=== PATIENT | male | born 1995 | race Caucasian/White ===

== ENCOUNTER 2020-06-26 15:28 | Inpatient (IN) | payer OTHER ==
[2020-06-26 16:31] VITALS: BMI 29.4
[2020-06-26] MEDS ORDERED: MAGNESIUM HYDROX 2400MG/30ML ORAL SUSPENSION 30 ML CUP PO PRN (17:21)
[2020-06-26] MEDS ORDERED: IBUPROFEN 400 MG TABLET (FP) PO PRN ×2 (17:21→18:08)
[2020-06-26] MEDS ORDERED: MAG HYDROX/AL HYDROX/SIMETH 30 ML UNIT-DOSE CUP PO PRN (17:21)
[2020-06-26] MEDS ORDERED: ACETAMINOPHEN 325 MG TABLET (FP) PO PRN ×2 (17:21)
[2020-06-26] MEDS ORDERED: METHADONE HCL 10 MG TABLET (FOR DETOX USE ONLY) PO ONE (17:21)
[2020-06-26] MEDS ORDERED: MENTHOL/PHENOL 1 EACH UD MM PRN (17:21)
[2020-06-26] MEDS ORDERED: cloNIDine HCL 0.1 MG TABLET PO PRN (17:21)
[2020-06-26] MEDS ORDERED: MAGNESIUM CITRATE 300 ML BOTTLE PO PRN (17:21)
[2020-06-26] MEDS ORDERED: BISMUTH SUBSALICYLATE 524 MG/30 ML UD PO PRN (17:21)
[2020-06-26] MEDS ORDERED: NALOXONE (NARCAN) HCL 4 MG/0.1 ML SPRAY NS PRN (17:21)
[2020-06-26] MEDS: IBUPROFEN 600 MG TABLET (FP) PO PRN (19:02)
[2020-06-26] MEDS: NICOTINE POLACRILEX 2 MG GUM BUC PRN ×2 (19:46→22:53)
[2020-06-26] MEDS: diazePAM 5 MG TABLET PO PRN (20:25)
[2020-06-26] MEDS ORDERED: QUEtiapine FUMARATE 50 MG TABLET PO ONE (22:00)
[2020-06-26] MEDS: THIAMINE HCL 100 MG TABLET (FP) PO SCH (22:23)
[2020-06-26] MEDS: MELATONIN 5 MG TABLETS PO SCH (22:23)
[2020-06-27] MEDS: IBUPROFEN 600 MG TABLET (FP) PO PRN ×2 (04:36→17:58)
[2020-06-27] MEDS: diazePAM 5 MG TABLET PO PRN ×5 (04:37→22:28)
[2020-06-27] MEDS ORDERED: METHADONE HCL 5 MG TABLET (FOR DETOX USE ONLY) ONE (08:36)
[2020-06-27] MEDS ORDERED: METHADONE HCL 10 MG TABLET (FOR DETOX USE ONLY) ONE (08:37)
[2020-06-27] MEDS ORDERED: hydrOXYzine PAMOATE 50 MG CAPSULE (FP) PO PRN (08:46)
[2020-06-27] MEDS ORDERED: MASKS NR ONE (08:59)
[2020-06-27 09:26] LABS: HEMATOCRIT 33.7 % (35.4-49); HEMOGLOBIN 11.8 GM/dL (11.7-16.9); MCH 31.3 pg (25.7-33.7); MCHC 34.9 g/dl (32.0-35.9); MEAN CELL VOLUME 89.6 fl (80-96); MEAN PLT VOLUME 9.6 fl (7.5-11.1); PLATELET COUNT 248 K/MM3 (134-434); RBC 3.76 M/mm3 (4.00-5.60); RDW 14.2 % (11.9-15.9); WHITE BLOOD COUNT 7.4 K/mm3 (4.0-10.0)
[2020-06-27 09:27] LABS: POTASSIUM 3.8 mmol/L (3.5-5.1)
[2020-06-27 09:30] LABS: CALCIUM 8.9 mg/dL (8.5-10.1)
[2020-06-27 09:31] LABS: ALBUMIN 3.5 g/dl (3.4-5.0); BLOOD UREA NITROGEN 11.5 mg/dL (7-18)
[2020-06-27 09:34] LABS: CREATININE 0.8 mg/dL (0.55-1.3)
[2020-06-27 09:35] LABS: BILIRUBIN,TOTAL 0.4 mg/dL (0.2-1)
[2020-06-27] MEDS ORDERED: METHADONE (DETOX) 20 MG, METHADONE (DETOX) 5 MG PO ONE (10:00)
[2020-06-27] MEDS: NICOTINE 7 MG/24 HOURS TOPICAL PATCH TD SCH (10:25)
[2020-06-27] MEDS: PRENATAL VITAMINS W/ FOLIC ACID TABLET (FP) PO SCH (10:25)
[2020-06-27] MEDS ORDERED: cloNIDine HCL 0.1 MG TABLET PO PRN (12:02)
[2020-06-27] MEDS: METHOCARBAMOL 500 MG TABLET PO PRN (17:55)
[2020-06-27] MEDS: NICOTINE POLACRILEX 2 MG GUM BUC PRN ×2 (18:00→22:42)
[2020-06-27] MEDS ORDERED: QUEtiapine FUMARATE 100 MG TABLET (FP) PO SCH (22:00)
[2020-06-27] MEDS: QUEtiapine FUMARATE 50 MG TABLET PO SCH (22:28)
[2020-06-27] MEDS: THIAMINE HCL 100 MG TABLET (FP) PO SCH (22:28)
[2020-06-27] MEDS: MELATONIN 5 MG TABLETS PO SCH (22:30)
[2020-06-28] MEDS: diazePAM 5 MG TABLET PO PRN ×4 (06:54→22:10)
[2020-06-28] MEDS: METHOCARBAMOL 500 MG TABLET PO PRN ×3 (07:00→20:01)
[2020-06-28] MEDS: IBUPROFEN 600 MG TABLET (FP) PO PRN ×2 (07:00→17:06)
[2020-06-28] MEDS ORDERED: METHADONE HCL 10 MG TABLET (FOR DETOX USE ONLY) PO ONE (10:00)
[2020-06-28] MEDS: NICOTINE 7 MG/24 HOURS TOPICAL PATCH TD SCH (10:25)
[2020-06-28] MEDS: PRENATAL VITAMINS W/ FOLIC ACID TABLET (FP) PO SCH (10:26)
[2020-06-28] MEDS: NICOTINE POLACRILEX 2 MG GUM BUC PRN ×2 (17:12→22:59)
[2020-06-28] MEDS: QUEtiapine FUMARATE 50 MG TABLET PO SCH (22:09)
[2020-06-28] MEDS: MELATONIN 5 MG TABLETS PO SCH (22:09)
[2020-06-28] MEDS: THIAMINE HCL 100 MG TABLET (FP) PO SCH (22:09)
[2020-06-29 06:05] LABS: SARS-CoV-2 NAA Not Detected (Not Detected)
[2020-06-29] MEDS: METHOCARBAMOL 500 MG TABLET PO PRN (06:28)
[2020-06-29] MEDS: IBUPROFEN 600 MG TABLET (FP) PO PRN (06:28)
[2020-06-29] MEDS: diazePAM 5 MG TABLET PO PRN (06:29)
[2020-06-29] MEDS ORDERED: METHADONE HCL 10 MG TABLET (FOR DETOX USE ONLY) ONE (08:46)
[2020-06-29] MEDS ORDERED: METHADONE HCL 5 MG TABLET (FOR DETOX USE ONLY) ONE (08:46)
[2020-06-29] MEDS: NICOTINE 7 MG/24 HOURS TOPICAL PATCH TD SCH (09:38)
[2020-06-29] MEDS: PRENATAL VITAMINS W/ FOLIC ACID TABLET (FP) PO SCH (09:38)
[2020-06-29] MEDS: NICOTINE POLACRILEX 2 MG GUM BUC PRN (09:39)
[2020-06-29] MEDS ORDERED: METHADONE (DETOX) 10 MG, METHADONE (DETOX) 5 MG PO ONE (10:00)
[2020-06-29] MEDS ORDERED: amLODIPine BESYLATE 10 MG TABLET (FP) PO SCH (11:45)
[2020-06-29 13:17] VITALS: BP 133/77; PULSE 100; TEMP 97.8
[2020-06-30] MEDS ORDERED: METHADONE HCL 10 MG TABLET (FOR DETOX USE ONLY) PO ONE (10:00)
[2020-07-01] MEDS ORDERED: METHADONE HCL 5 MG TABLET (FOR DETOX USE ONLY) PO ONE (06:00)
== END 2020-06-29 12:53 | disposition home or self-care (01) | DRG 773 ==
LOC: YASAS 15:28 → Y6N 17:11
PROVIDERS: ADMIT Allergy & Immunology; ATTEND Allergy & Immunology
PROC: HZ2ZZZZ Detoxification Services for Substance Abuse Treatment (ICD-10-PCS; principal; 2020-06-26)
DX: F11.23 Opioid dependence with withdrawal (principal); F13.20 Sedative, hypnotic or anxiolytic dependence, uncomplicated; F12.20 Cannabis dependence, uncomplicated; F17.210 Nicotine dependence, cigarettes, uncomplicated; F19.280 Other psychoactive substance dependence with psychoactive substance-induced anxiety disorder; F19.282 Other psychoactive substance dependence with psychoactive substance-induced sleep disorder; F19.24 Other psychoactive substance dependence with psychoactive substance-induced mood disorder; Z86.69 Personal history of other diseases of the nervous system and sense organs; Z56.0 Unemployment, unspecified
CPT/HCPCS: 36415; 80053; 85027; 86780; C9803; J0735; U0003; U0005

== ENCOUNTER 2020-10-16 05:22 | Inpatient (IN) | payer OTHER ==
[2020-10-16] MEDS ORDERED: IBUPROFEN 400 MG TABLET (FP) PO PRN (06:42)
[2020-10-16] MEDS ORDERED: BISMUTH SUBSALICYLATE 524 MG/30 ML PO PRN (06:42)
[2020-10-16] MEDS ORDERED: cloNIDine HCL 0.1 MG TABLET PO PRN (06:42)
[2020-10-16] MEDS ORDERED: methaDONE HCL 10 MG TABLET (FOR DETOX USE ONLY) PO ONE (06:42)
[2020-10-16] MEDS ORDERED: ONDANSETRON *ODT* 4 MG TABLET SL PRN (06:42)
[2020-10-16] MEDS ORDERED: MAGNESIUM HYDROX 2400MG/30ML ORAL SUSPENSION 30 ML CUP PO PRN (06:42)
[2020-10-16] MEDS ORDERED: MAG HYDROX/AL HYDROX/SIMETH 30 ML UNIT-DOSE CUP PO PRN (06:42)
[2020-10-16] MEDS ORDERED: MAGNESIUM CITRATE 300 ML BOTTLE PO PRN (06:42)
[2020-10-16] MEDS ORDERED: MENTHOL/PHENOL 1 EACH UD MM PRN (06:42)
[2020-10-16] MEDS ORDERED: ACETAMINOPHEN 325 MG TABLET (FP) PO PRN ×2 (06:42)
[2020-10-16 07:27] VITALS: BMI 28.5
[2020-10-16] MEDS ORDERED: methaDONE HCL 10 MG TABLET (FOR DETOX USE ONLY) ONE (07:36)
[2020-10-16] MEDS: PRENATAL VITAMINS W/ FOLIC ACID TABLET (FP) PO SCH (11:22)
[2020-10-16] MEDS: NICOTINE POLACRILEX 2 MG GUM BUC PRN ×3 (12:18→21:29)
[2020-10-16] MEDS: METHOCARBAMOL 500 MG TABLET PO PRN (17:25)
[2020-10-16] MEDS ORDERED: hydrOXYzine PAMOATE 25 MG CAPSULE (FP) PO ONE (21:35)
[2020-10-16] MEDS ORDERED: MELATONIN 5 MG TABLETS PO SCH (22:00)
[2020-10-16] MEDS ORDERED: THIAMINE HCL 100 MG TABLET (FP) PO SCH (22:00)
[2020-10-17 06:45] VITALS: BP 107/68; PULSE 64; TEMP 97.2
[2020-10-17] MEDS ORDERED: methaDONE HCL 10 MG TABLET (FOR DETOX USE ONLY) ONE (09:06)
[2020-10-17] MEDS: PRENATAL VITAMINS W/ FOLIC ACID TABLET (FP) PO SCH (10:46)
[2020-10-17] MEDS: METHOCARBAMOL 500 MG TABLET PO PRN (10:49)
[2020-10-18] MEDS ORDERED: methaDONE HCL 10 MG TABLET (FOR DETOX USE ONLY) PO ONE (10:00)
[2020-10-20] MEDS ORDERED: methaDONE HCL 10 MG TABLET (FOR DETOX USE ONLY) PO ONE (10:00)
== END 2020-10-17 12:35 | disposition left against medical advice (07) | DRG 770 ==
LOC: YASAS 05:22 → Y3N 07:52
PROVIDERS: ADMIT Allergy & Immunology; ATTEND Allergy & Immunology
PROC: HZ2ZZZZ Detoxification Services for Substance Abuse Treatment (ICD-10-PCS; principal; 2020-10-16)
DX: F11.23 Opioid dependence with withdrawal (principal); F13.20 Sedative, hypnotic or anxiolytic dependence, uncomplicated; F17.210 Nicotine dependence, cigarettes, uncomplicated; F41.9 Anxiety disorder, unspecified; F32.9 Major depressive disorder, single episode, unspecified; G40.509 Epileptic seizures related to external causes, not intractable, without status epilepticus
CPT/HCPCS: 36415; 70450-TC; 71045-TC-FY; 72070-TC-FY; 72125-TC; 73562-TC-RT-FY; 80053; 82962; 85025; 90715; 93005; 93010; C9803; J0735; U0003; U0005